=== PATIENT | female | born 1945 | race Hispanic/Latino ===

== ENCOUNTER 2017-05-01 08:58 | Outpatient (CLI) | payer MEDICARE ==
--- NOTE | 2017-05-01 13:22 | XRay Report ---
XRAY RIGHT SHOULDER THREE VIEWS: 05/01/17 08:58:00 CLINICAL: Right shoulder pain. FINDINGS: Normal glenohumeral alignment. Glenohumeral joint arthritis with inferior glenoid osteophyte. Moderate acromioclavicular joint arthritis with a small subacromial osteophyte. No fracture or dislocation. No bone lesion. Normal soft tissues. IMPRESSION: Moderate acromioclavicular joint arthritis and moderate glenohumeral joint arthritis.
== END 2017-05-01 08:59 | disposition home or self-care (01) ==
LOC: XRAY 08:58
PROVIDERS: ATTEND Orthopaedic Surgery
DX: M19.011 Primary osteoarthritis, right shoulder (principal)